=== PATIENT | female | born 1990 | race Caucasian/White ===

== ENCOUNTER 2019-08-18 12:08 | Inpatient (IN) ==
[2019-08-18] MEDS: LACTATED RINGERS 1,000 ML IV SCH ×2 (14:08→20:30)
[2019-08-18] MEDS: ONDANSETRON 4 MG/2 ML VIAL IV PRN ×2 (14:08→18:12)
[2019-08-18 14:21] LABS: Basophils % 0.1 % (0.0-0.8); Hematocrit 34.5 VOL% (35.7-47.0); Hemoglobin 11.6 GM/DL (12.0-16.0); Immature Granulocytes % 0.4 %; Immature Granulocytes Absolute 0.07 #; Lymphocytes # 1.3 10*3/uL (1.4-4.0); Lymphocytes % 8.1 % (21.3-54.2); Mean Corpuscular HGB Conc 33.6 GM/DL (32-36); Mean Corpuscular Volume 85.8 FL (87-102); Mean Platelet Volume 11.6 FL (9.6-12.0); Monocytes % 4.9 % (1.7-12.7); Neutrophils % 86.5 % (38.7-73.9); Platelet Count 218 T/CUMM (130-400); Red Blood Count 4.02 MC/CUMM (3.8-5.5); Red Cell Distribution Width 12.1 % (9.3-17.3); White Blood Count 15.6 T/CUMM (4-12)
[2019-08-18 15:50] LABS: Apearance,Urine CLEAR (Clear); Bacteria,Urine Occasional /HPF (Few); Bilirubin,Urine Negative (Negative); Blood, Urine Negative (Negative); Glucose,Urine (UA) Negative (Negative); Ketones,Urine 80 mg/dL (Negative); Mucus,Urine Many /LPF (Occasional); Nitrite,Urine Negative (Negative); Protein,Urine 30 MG/DL; RBC,Urine 15 /HPF (0-4); Squamous Epithelial Cell,Urine Occasional /HPF (0-10); Transitional Epi Cells,Urine Occasional /HPF (<1); Urine Color Amber (Yellow); Urine Specific Gravity 1.025 (1.001-1.035); Urine Urobilinogen < 2.0 EU/DL (0.2-1.0); WBC,Urine 4 /HPF (0-6)
[2019-08-18] MEDS ORDERED: cefTRIAXone 1,000 MG in SYRINGE 1 EACH IV ONE (16:50)
[2019-08-18] MEDS: BUTORPHANOL 2 MG/ML VIAL IV PRN ×2 (16:55→20:32)
[2019-08-18] MEDS: FAMOTIDINE 20 MG/2 ML VIAL IV SCH (17:07)
[2019-08-18] MEDS: ACETAMINOPHEN/CODEINE 300-30 MG TABLET PO PRN (23:06)
[2019-08-19] MEDS: LACTATED RINGERS 1,000 ML IV SCH ×2 (02:36→11:25)
[2019-08-19] MEDS: FAMOTIDINE 20 MG/2 ML VIAL IV SCH ×2 (04:57→18:01)
[2019-08-19] MEDS: ACETAMINOPHEN/CODEINE 300-30 MG TABLET PO PRN (05:02)
[2019-08-19 08:19] LABS: Basophils % 0.3 % (0.0-0.8); Eosinophils % 0.1 % (0.00-10.9); Hematocrit 29.8 VOL% (35.7-47.0); Immature Granulocytes % 0.4 %; Immature Granulocytes Absolute 0.05 #; Lymphocytes # 1.8 10*3/uL (1.4-4.0); Lymphocytes % 15.1 % (21.3-54.2); Mean Corpuscular HGB Conc 33.6 GM/DL (32-36); Mean Corpuscular Volume 86.6 FL (87-102); Mean Platelet Volume 11.3 FL (9.6-12.0); Monocytes % 7.6 % (1.7-12.7); Neutrophils % 76.5 % (38.7-73.9); Platelet Count 181 T/CUMM (130-400); Red Blood Count 3.44 MC/CUMM (3.8-5.5); Red Cell Distribution Width 11.9 % (9.3-17.3); White Blood Count 11.9 T/CUMM (4-12)
[2019-08-19 08:48] LABS: Albumin 2.3 G/DL (3.4-5.0); Bilirubin,Total 0.7 MG/DL (0.2-1.0); Calcium 8.5 MG/DL (8.5-10.1); Osmolality,Calculated 278.1 MOS/KG (273-304); Total Protein 5.9 G/DL (6.4-8.3)
[2019-08-19 09:44] LABS: Apearance,Urine Slightly Hazy (Clear); Bilirubin,Urine Negative (Negative); Blood, Urine Small mg/dL (Negative); Glucose,Urine (UA) Negative (Negative); Ketones,Urine 80 mg/dL (Negative); Mucus,Urine Few /LPF (Occasional); Nitrite,Urine Negative (Negative); Protein,Urine Negative; RBC,Urine 11 /HPF (0-4); Squamous Epithelial Cell,Urine Occasional /HPF (0-10); Urine Color Yellow (Yellow); Urine Specific Gravity 1.014 (1.001-1.035); WBC,Urine 26 /HPF (0-6)
[2019-08-19] MEDS: POTASSIUM CHLORIDE RIDER 10 MEQ in PREMIX 1 EACH IV PRN ×7 (11:26→23:35)
[2019-08-19] MEDS ORDERED: INFLUENZA VIRUS VACCINE 0.5 ML SYRINGE IM ONE (18:50)
[2019-08-19] MEDS ORDERED: cefTRIAXone 1,000 MG in SYRINGE 1 EACH IV SCH (20:00)
[2019-08-20] MEDS: POTASSIUM CHLORIDE RIDER 10 MEQ in PREMIX 1 EACH IV PRN ×2 (00:38→01:58)
[2019-08-20 07:18] VITALS: BP 122/76
[2019-08-20] MEDS: FAMOTIDINE 20 MG/2 ML VIAL IV SCH (08:03)
[2019-08-20] MEDS: LACTATED RINGERS 1,000 ML IV SCH (08:04)
== END 2019-08-20 12:00 | disposition home or self-care (01) | DRG 833 ==
LOC: N.LDOUT 12:08 → N.LD 12:10 → N.OB 17:30
PROVIDERS: ADMIT Obstetrics & Gynecology; ATTEND Obstetrics & Gynecology